=== PATIENT | male | born 1995 | race Caucasian/White ===

== ENCOUNTER → 2018-02-18 | Outpatient (CLI) | payer BC | LOC: M SLEEP HO 06:59 | DX: R40.0 Somnolence (principal); R06.83 Snoring | CPT/HCPCS: G0399 ==

== ENCOUNTER → 2018-08-30 | Outpatient (REF) | payer BC ==
[2018-08-30 19:04] LABS: CONTROL LINE MONO INT CTR LINE PRESENT; MONO SCRN NEGATIVE (NEGATIVE)
[2018-09-07 00:08] LABS: EBV PCR QUANTITATIVE Negative copies/mL (Negative); IgG P18 AB Absent (.); IgG P23 AB Absent (.); IgG P28 AB Absent (.); IgG P30 AB Absent (.); IgG P39 AB Absent (.); IgG P41 AB Present (.); IgG P45 AB Absent (.); IgG P58 AB Absent (.); IgG P66 AB Absent (.); IgG P93 AB Absent (.); IgM P23 AB Absent (.); IgM P39 AB Absent (.); IgM P41 AB Absent (.); LYME IgG WB INTERPRETATION Negative (.); LYME IgM WB INTERPRETATION Negative (.)
== END ==
LOC: M SFHCPLAZ 15:20
DX: R53.83 Other fatigue (principal)
CPT/HCPCS: 36415

== ENCOUNTER → 2019-05-04 | Outpatient (REF) | payer BC | LOC: M SFHCPLAZ 19:29 | PROVIDERS: ATTEND Family Medicine | DX: R10.33 Periumbilical pain (principal) ==

== ENCOUNTER 2020-02-23 19:07 | Emergency (ER) | payer OTHER, BC ==
[~2020-02-23] VITALS: Ht 177.8 cm; Wt 82.1 kg
[2020-02-23] MEDS ORDERED: ALLE180T33 PO (19:12)
[2020-02-23] MEDS ORDERED: CITA20TA6 PO (19:12)
[2020-02-23 21:58] VITALS: BP 128/78
--- NOTE | 2020-02-24 10:54 | REP ---
SCROTAL ULTRASOUND: Real-time sonographic evaluation of scrotum and contents performed. Testicles are normal in size and echotexture, right testicle measuring 5.3 x 2.1 x 3.2 cm and left testicle 5.3 x 2.2 x 3.3 cm. There is no testicular mass. There is no evidence of testicular torsion, blood flow is seen in each testicle with duplex Doppler evaluation. There is a 3 mm cyst in the right epididymis. There is an extra-testicular calcification in the right scrotum 4 mm in diameter, representing a scrotal solo. Very small hydroceles are noted. IMPRESSION: No testicular mass or torsion. Very small hydroceles. Preliminary report provided by [facility] at the time of the exam. Electronically Signed by Dada Rodriguez MD 02/27/2020 09:45 P
--- NOTE | 2020-02-24 10:55 | REP ---
INGUINAL ULTRASOUND: Real-time sonographic evaluation of inguinal canals performed bilaterally at rest and with Valsalva maneuver. There is no sonographic evidence of inguinal hernia. No cystic or solid mass is seen. IMPRESSION: No sonographic evidence of inguinal hernia bilaterally. Preliminary report provided by [facility] at the time of the exam. Electronically Signed by Dada Rodriguez MD 02/27/2020 09:46 P
== END 2020-02-23 21:58 | disposition home or self-care (01) ==
LOC: M ED 19:07
DX: R10.31 Right lower quadrant pain (principal); N43.3 Hydrocele, unspecified; J30.2 Other seasonal allergic rhinitis

== ENCOUNTER → 2020-04-21 | Outpatient (REF) | payer BC ==
[~2020-04-21] MED LIST: ALLE180T33 PO; CITA20TA6 PO
[2020-05-19 07:09] LABS: HEMATOCRIT 49.8 % (42.0-52.0); HEMOGLOBIN 16.5 g/dl (13.5-17.5); MEAN CORPUSCULAR HEMOGLOBIN 28.6 pg (27.0-33.0); MEAN CORPUSCULAR HGB CONC 33.1 g/dl (32.0-36.5); MEAN CORPUSCULAR VOLUME 86.3 fl (80.0-96.0); PLATELET COUNT, AUTOMATED 217 10^3/uL (150-450); RED BLOOD COUNT 5.77 10^6/uL (4.30-6.10); WHITE BLOOD COUNT 5.5 10^3/uL (4.0-10.0)
[2020-05-28 10:08] LABS: ALBUMIN 4.4 GM/DL (3.2-5.2); ALT/SGPT 53 U/L (12-78); BLOOD UREA NITROGEN 20 MG/DL (7-18); CALCIUM LEVEL 9.6 MG/DL (8.5-10.1); CARBON DIOXIDE LEVEL 31 MEQ/L (21-32); CHLORIDE LEVEL 106 MEQ/L (98-107); CHOLESTEROL LEVEL 158 MG/DL (<200); CHOLESTEROL RISK RATIO 3.511 (<5); CREATININE FOR GFR 0.92 MG/DL (0.70-1.30); GLOMERULAR FILTRATION RATE > 60.0 (>60); GLUCOSE, FASTING 90 MG/DL (70-100); HDL CHOLESTEROL 45 MG/DL (>40); LDL CHOLESTEROL 98 MG/DL (<100); NON-HDL-C 113 MG/DL; POTASSIUM SERUM 4.1 MEQ/L (3.5-5.1); SODIUM LEVEL 139 MEQ/L (136-145); TOTAL PROTEIN 7.1 GM/DL (6.4-8.2); TRIGLYCERIDES LEVEL 76 MG/DL (<150)
== END ==
LOC: M LABWUC 07:59
PROVIDERS: ATTEND Family Medicine
DX: J30.2 Other seasonal allergic rhinitis (principal); K21.9 Gastro-esophageal reflux disease without esophagitis; F41.9 Anxiety disorder, unspecified; Z13.220 Encounter for screening for lipoid disorders; Z13.1 Encounter for screening for diabetes mellitus

== ENCOUNTER 2023-12-06 15:25 | Emergency (ER) | payer BC, OTHER ==
[~2023-12-06] VITALS: Ht 180.3 cm; Wt 94.6 kg
[2023-12-06 16:06] LABS: BASO % 0.4 % (0.0-1.0); EOS # 0.1 10^3/uL (0.0-0.5); EOS % 1.8 % (0.0-3.0); HEMATOCRIT 49.7 % (42.0-52.0); HEMOGLOBIN 17.2 g/dl (13.5-17.5); LYMPH # 2.3 10^3/uL (1.5-5.0); LYMPH % 31.6 % (24.0-44.0); MEAN CORPUSCULAR HEMOGLOBIN 29.1 pg (27.0-33.0); MEAN CORPUSCULAR HGB CONC 34.6 g/dl (32.0-36.5); MONO # 0.5 10^3/uL (0.0-0.8); MONO % 6.9 % (2.0-8.0); NEUTROPHILS # 4.2 10^3/uL (1.5-8.5); PLATELET COUNT, AUTOMATED 264 10^3/uL (150-450); RED BLOOD COUNT 5.92 10^6/uL (4.30-6.10); WHITE BLOOD COUNT 7.1 10^3/uL (4.0-10.0)
[2023-12-06 16:30] LABS: CK-MB VALUE MASS 1.1 NG/ML (<3.6)
[2023-12-06 16:31] LABS: BLOOD UREA NITROGEN 18 MG/DL (9-23); CALCIUM LEVEL 9.5 MG/DL (8.5-10.1); CARBON DIOXIDE LEVEL 29 MMOL/L (20-31); CHLORIDE LEVEL 107 MMOL/L (98-107); CK-MB VALUE MASS 1.5 NG/ML (<3.6); CPK CREATINE PHOSPHOKINASE 195 U/L (46-171); CPK CREATINE PHOSPHOKINASE 219 U/L (46-171); CREATININE FOR GFR 0.89 MG/DL (0.70-1.30); GLOMERULAR FILTRATION RATE > 60.0 (>60); GLUCOSE, FASTING 93 MG/DL (60-100); MB/CK RELATIVE INDEX 0.56 (< OR =4); MB/CK RELATIVE INDEX 0.68 (< OR =4); SODIUM LEVEL 143 MMOL/L (136-145)
[2023-12-06 19:03] LABS: CK-MB VALUE MASS < 1.0 NG/ML (<3.6)
[2023-12-06 19:04] LABS: CPK CREATINE PHOSPHOKINASE 181 U/L (46-171); MB/CK RELATIVE INDEX 0.55 (< OR =4)
[2023-12-06 19:18] VITALS: BP 138/94; TEMP 96.8; O2SAT 97
== END 2023-12-06 19:20 | disposition home or self-care (01) ==
LOC: M ED 15:25
DX: R07.89 Other chest pain (principal); F10.10 Alcohol abuse, uncomplicated

== ENCOUNTER → 2024-02-06 | Outpatient (CLI) | payer OTHER ==
[2024-02-06 13:33] LABS: BASO % 0.5 % (0.0-1.0); EOS # 0.1 10^3/uL (0.0-0.5); HEMATOCRIT 48.3 % (42.0-52.0); HEMOGLOBIN 16.5 g/dl (13.5-17.5); LYMPH # 1.5 10^3/uL (1.5-5.0); LYMPH % 24.3 % (24.0-44.0); MEAN CORPUSCULAR HEMOGLOBIN 28.7 pg (27.0-33.0); MEAN CORPUSCULAR HGB CONC 34.2 g/dl (32.0-36.5); MONO # 0.5 10^3/uL (0.0-0.8); MONO % 7.4 % (2.0-8.0); NEUTROPHILS # 4.1 10^3/uL (1.5-8.5); NEUTROPHILS % 66.5 % (36.0-66.0); PLATELET COUNT, AUTOMATED 226 10^3/uL (150-450); RED BLOOD COUNT 5.75 10^6/uL (4.30-6.10); WHITE BLOOD COUNT 6.2 10^3/uL (4.0-10.0)
[2024-02-06 14:07] LABS: CPK CREATINE PHOSPHOKINASE 161 U/L (46-171)
[2024-02-06 14:08] LABS: ALBUMIN 4.3 G/DL (3.2-5.2); ALKALINE PHOSPHATASE 94 U/L (46-116); ALT/SGPT 28 U/L (7.0-40); AST/SGOT 23 U/L (<34); BILIRUBIN,TOTAL 0.9 MG/DL (0.3-1.2); BLOOD UREA NITROGEN 17 MG/DL (9-23); CALCIUM LEVEL 9.3 MG/DL (8.5-10.1); CARBON DIOXIDE LEVEL 30 MMOL/L (20-31); CHLORIDE LEVEL 104 MMOL/L (98-107); CHOLESTEROL LEVEL 184 MG/DL (<200); CHOLESTEROL RISK RATIO 4.44 (<5); CREATININE FOR GFR 0.85 MG/DL (0.70-1.30); GLOMERULAR FILTRATION RATE > 60.0 (>60); GLUCOSE, FASTING 95 MG/DL (60-100); HDL CHOLESTEROL 41.4 MG/DL (>40); LDL CHOLESTEROL 120.4 MG/DL (<100); NON-HDL-C 142.6 MG/DL; POTASSIUM SERUM 3.9 MMOL/L (3.5-5.1); SODIUM LEVEL 139 MMOL/L (136-145); TOTAL PROTEIN 6.8 G/DL (5.7-8.2); TRIGLYCERIDES LEVEL 111 MG/DL (<150)
[2024-02-06 14:10] LABS: THYROID STIMULATING HORMONE 1.234 uIU/ML (0.55-4.78); TOTAL 25(OH) VITAMIN D 45.1 NG/ML (20.0-100.0)
== END ==
LOC: M LAB 13:01
PROVIDERS: ATTEND Family Medicine
DX: F41.9 Anxiety disorder, unspecified (principal)